=== PATIENT | male | born 1985 | race Two or more races ===

== ENCOUNTER 2024-01-12 18:29 | Emergency (ER) | payer OTHER ==
[~2024-01-12] VITALS: Ht 175.3 cm; Wt 106.6 kg
[2024-01-12 18:41] VITALS: BP 112/73; TEMP 98.8; O2SAT 100
== END 2024-01-12 23:48 | disposition left against medical advice (07) ==
LOC: ER 18:29
DX: M54.2 Cervicalgia (principal); Z53.21 Procedure and treatment not carried out due to patient leaving prior to being seen by health care provider